=== PATIENT | female | born 1960 | race Two or more races ===

== ENCOUNTER 2018-08-17 09:32 | Inpatient (IN) | payer OTHER ==
[~2018-08-17] VITALS: Ht 154.9 cm; Wt 77.6 kg
[2018-09-11] MEDS ORDERED: AMIODARONE HCL200 MG PO (12:31)
[2018-09-11] MEDS ORDERED: COZAAR100 MG PO (12:32)
[2018-09-11] MEDS ORDERED: LEVO-T25 MCG PO (12:32)
[2018-09-11] MEDS ORDERED: LORATADINE10 M2 PO (12:32)
[2018-09-11] MEDS ORDERED: PROTONIX40 MG PO (12:32)
[2018-09-11] MEDS ORDERED: HYDROCHLOROTH12.5 MG PO (12:32)
[2018-09-11] MEDS ORDERED: VITAMIN D310000 UNIT PO (12:33)
[2018-09-11] MEDS ORDERED: RANITIDINE HCL300 MG PO (12:33)
[2018-09-11] MEDS ORDERED: ALPHAGAN P5 M2 (14:03)
[2018-09-25] MEDS ORDERED: ACIDOPHILUS-PE1 EAC2 PO (16:14)
[2018-09-25] MEDS ORDERED: PROTONIX40 MG PO (16:14)
[2018-09-25] MEDS ORDERED: OXYC1TAB9 PO (16:15)
== END 2018-09-25 21:15 | disposition home or self-care (01) | DRG 330 ==
LOC: SURG 09-20 06:30 → O/R 09-20 06:30 → SURH 09-20 07:00 → SURG 09-20 11:36 → SURH 09-23 13:09
PROVIDERS: ADMIT Surgery
PROC: 0DJD8ZZ Inspection of Lower Intestinal Tract, Via Natural or Artificial Opening Endoscopic (ICD-10-PCS; 2018-09-20)
PROC: 5A09457 Assistance with Respiratory Ventilation, 24-96 Consecutive Hours, Continuous Positive Airway Pressure (ICD-10-PCS; 2018-09-20)
PROC: B54DZZZ Ultrasonography of Bilateral Lower Extremity Veins (ICD-10-PCS; 2018-09-20)
PROC: 3E0F7GC Introduction of Other Therapeutic Substance into Respiratory Tract, Via Natural or Artificial Opening (ICD-10-PCS; 2018-09-20)
PROC: 0DTN4ZZ Resection of Sigmoid Colon, Percutaneous Endoscopic Approach (ICD-10-PCS; principal; 2018-09-20 09:30)
PROC: BW24ZZZ Computerized Tomography (CT Scan) of Chest and Abdomen (ICD-10-PCS; 2018-09-21)
DX: K57.20 Diverticulitis of large intestine with perforation and abscess without bleeding (principal); J98.11 Atelectasis; I11.9 Hypertensive heart disease without heart failure; E03.8 Other specified hypothyroidism; E11.9 Type 2 diabetes mellitus without complications; M79.7 Fibromyalgia; E66.8 Other obesity; J45.20 Mild intermittent asthma, uncomplicated; R09.02 Hypoxemia; Z86.711 Personal history of pulmonary embolism; Z99.81 Dependence on supplemental oxygen

== ENCOUNTER 2018-09-27 02:54 | Inpatient (IN) | payer OTHER ==
[~2018-09-27] VITALS: Ht 154.9 cm; Wt 77.1 kg
[~2018-09-27 02:54] MED LIST: ACIDOPHILUS-PE1 EAC2 PO; ALPHAGAN P5 M2; AMIODARONE HCL200 MG PO; COZAAR100 MG PO; HYDROCHLOROTH12.5 MG PO; LEVO-T25 MCG PO; LORATADINE10 M2 PO; OXYC1TAB9 PO; PROTONIX40 MG PO; RANITIDINE HCL300 MG PO; VITAMIN D310000 UNIT PO
--- NOTE | 2018-09-27 03:03 | NUR ---
SE RECIBE PTE ALERTA Y ORIENTADA POR OTTONIEL EN AMBULANCIA. PTE TRANSFERIDA DEL [facility]. FAMILIAR REFIERE QUE LA PTE SUFRIO DESMAYO CON PERDIDA DE CONOCIMIENTO Y UN EPISODIO DE VOMITO A LAS 7:00PM DE BRENDEN. PTE ES RESIBIDA CON CANALIZACION EN MANO DERECHA CON ANGIO #20. PTE CON S/V ESTABLES ES COLOCADA EN AREA DE OBSERVACION, EN MILVIA CON BARANDAS ELEVADAS. PTE ES PRESENTADA A DR. ANNE POR PERSONAL PARAMEDICO.
--- NOTE | 2018-09-27 04:14 | NUR ---
SE RECIBE PTE FEMENINA DE 58 YRS ALERTA CONCIENTE Y TRANQUILA PTE LLEGA EN AMBULANCIA . PTE ES EVALUADA POR EL DR, DAYANA QUIEN ORDENA TRATAMIENTO LA CUAL SE EJECUTA., SE OBSERVA PTE SE OBSERVA CON H/L PATENTE Y ANASTASIYA DE EDEMA . PTE LLEGA CON FOLIE CATHETE IN PLACES Y ANASTASIYA DE DOLOR L.SE MANTIENE BAJO OBSSERVACION POR CAMBIOS.
--- NOTE | 2018-09-27 07:00 | NUR ---
PACIENTE ALERTA Y ORIENTADA EN BRIGETTE OTTONIEL ESFERAS, PRESENTA BUEN PATRON RESPIRATORIO Y ANASTASIYA DE DOLOR. CANALIZADA EN BRAZO RT PATENTE Y ANASTASIYA DE S/S DE FLEBITIS E INFILTRACION, RECIBIENDO 0.9% NSS A 150 ML/HR, SONDA URINARIA DRENANDO ORINA AMARILLO THOMAS, CANULA NASAL A 2 LT. PENDIENTE EVALUACION DE MEDICINA INTERNA CON DR MCDONOUGH POR SINCOPE.
[2018-10-01] MEDS ORDERED: PHENAZOPYRIDIN100 MG PO (13:05)
[2018-10-01] MEDS ORDERED: ACIDOPHILUS-PE1 EAC2 PO (13:05)
[2018-10-01] MEDS ORDERED: RANITIDINE HCL300 MG PO (13:05)
[2018-10-01] MEDS ORDERED: LEVO-T25 MCG PO (13:05)
[2018-10-01] MEDS ORDERED: HYOSCYAMINE0.125 M1 SL (13:05)
[2018-10-01] MEDS ORDERED: ALPHAGAN P5 M2 OPHT (13:05)
[2018-10-01] MEDS ORDERED: PROTONIX40 MG PO (13:05)
[2018-10-01] MEDS ORDERED: XOPENEX0.63 MG/3 IH (13:05)
[2018-10-01] MEDS ORDERED: LEVAQUIN750 MG PO (13:05)
== END 2018-10-01 16:27 | disposition home or self-care (01) | DRG 690 ==
LOC: ER 02:54 → SEC-K 11:58 → MEDJ 13:32
PROVIDERS: ADMIT Internal Medicine Geriatric Medicine
PROC: BW24ZZZ Computerized Tomography (CT Scan) of Chest and Abdomen (ICD-10-PCS; principal; 2018-09-27)
PROC: B246ZZZ Ultrasonography of Right and Left Heart (ICD-10-PCS; 2018-09-27)
PROC: B030ZZZ Magnetic Resonance Imaging (MRI) of Brain (ICD-10-PCS; 2018-09-27)
PROC: B345ZZZ Ultrasonography of Bilateral Common Carotid Arteries (ICD-10-PCS; 2018-09-27)
PROC: 4A12X4Z Monitoring of Cardiac Electrical Activity, External Approach (ICD-10-PCS; 2018-09-27)
DX: N39.0 Urinary tract infection, site not specified (principal); J45.21 Mild intermittent asthma with (acute) exacerbation; J98.11 Atelectasis; B96.29 Other Escherichia coli [E. coli] as the cause of diseases classified elsewhere; R55 Syncope and collapse; E11.9 Type 2 diabetes mellitus without complications; E03.8 Other specified hypothyroidism; M79.7 Fibromyalgia; I49.8 Other specified cardiac arrhythmias; I11.9 Hypertensive heart disease without heart failure; E66.8 Other obesity; Z91.040 Latex allergy status; Z88.0 Allergy status to penicillin; Z86.711 Personal history of pulmonary embolism
CPT/HCPCS: 70551

== ENCOUNTER 2019-11-19 07:17 | Outpatient (CLI) | payer OTHER ==
[~2019-11-19 07:17] MED LIST changes: +ALPHAGAN P5 M2 OPHT; +HYOSCYAMINE0.125 M1 SL; +LEVAQUIN750 MG PO; +PHENAZOPYRIDIN100 MG PO; +XOPENEX0.63 MG/3 IH
== END 2019-11-19 07:22 | disposition home or self-care (01) ==
LOC: LAB 07:17
PROVIDERS: ATTEND Surgery
DX: K57.20 Diverticulitis of large intestine with perforation and abscess without bleeding (principal); R10.32 Left lower quadrant pain; R10.30 Lower abdominal pain, unspecified

== ENCOUNTER 2019-11-26 06:34 | Day surgery (SDC) | payer OTHER | END 2019-11-26 10:20 | disposition home or self-care (01) | LOC: AMB-ENDOS 06:34 → ADM 12:00 | PROVIDERS: ATTEND Surgery | DX: K62.89 Other specified diseases of anus and rectum (principal); K64.8 Other hemorrhoids; Z20.828 Contact with and (suspected) exposure to other viral communicable diseases ==